=== PATIENT | female | born 1980 | race Two or more races ===

== ENCOUNTER 2020-03-30 11:59 | Outpatient (CLI) | payer BC ==
[2020-03-30 13:19] LABS: HGB - HEMOGLOBIN 9.3 g/dL (12.0-16.0); MEAN CORPUSCULAR HEMOGLOBIN 28.8 pg (27.0-31.0); MEAN CORPUSCULAR HGB CONC 32.5 g/dL (32.0-36.0); MEAN CORPUSCULAR VOLUME 88.5 fL (81.0-99.0); MEAN PLATELET VOLUME 8.9 fL (7.9-10.8); RED BLOOD COUNT 3.23 10^6/uL (4.20-5.40); WHITE BLOOD COUNT 9.3 x10^3/uL (4.8-10.8)
== END 2020-03-30 12:00 | disposition home or self-care (01) ==
LOC: LAB 11:59
PROVIDERS: ATTEND Obstetrics & Gynecology
DX: Z36.89 Encounter for other specified antenatal screening (principal)
CPT/HCPCS: 36415; 82950; 85027; 86850

== ENCOUNTER 2020-04-02 09:23 | Outpatient (CLI) | payer BC ==
[2020-04-02] MEDS ORDERED: FERRIC GLUCONATE 125 MG in SODIUM CHLORIDE 0.9% 100ML 100 ML IV ONE (10:30)
[2020-04-02 12:25] VITALS: BP 121/68
--- NOTE | 2020-04-02 17:44 | PROVIDER PROGRESS NOTE ---
Subjective - Subjective Subjective: Pt here for scheduled IV iron transfusion. Uncomplicated; not seen by MD. Dx = chronic iron deficiency anemia Objective - Vital Signs/Intake & Output Vital Signs: Vital Signs x48h Temp Pulse Pulse Resp BP 04/02/20 12:00 97.5 F L 98 105 H 16 121/68
== END 2020-04-02 11:45 | disposition home or self-care (01) ==
LOC: WFO 09:23 → FBP 09:29 → WFO 11:45
PROVIDERS: ATTEND Obstetrics & Gynecology
DX: O99.019 Anemia complicating pregnancy, unspecified trimester (principal); D50.9 Iron deficiency anemia, unspecified
CPT/HCPCS: 96365; J2916

== ENCOUNTER 2020-04-09 09:01 | Outpatient (CLI) | payer BC ==
[2020-04-09] MEDS ORDERED: FERRIC GLUCONATE 125 MG in SODIUM CHLORIDE 0.9% 100ML 100 ML IV ONE (10:00)
[2020-04-09 10:31] VITALS: BP 121/64
--- NOTE | 2020-04-09 17:02 | PROVIDER PROGRESS NOTE ---
Subjective - Subjective Subjective: Pt here for IV iron transfusion Dx = chronic iron deficiency anemia Not seen by MD. Objective - Vital Signs/Intake & Output Vital Signs: Vital Signs x48h Temp Pulse Pulse Resp BP Pulse Ox 04/09/20 10:27 98.4 F 107 H 107 H 16 121/64 100
== END 2020-04-09 11:25 | disposition home or self-care (01) ==
LOC: WFO 09:01 → FBP 09:06 → WFO 11:25
PROVIDERS: ATTEND Obstetrics & Gynecology
DX: O99.013 Anemia complicating pregnancy, third trimester (principal); Z3A.00 Weeks of gestation of pregnancy not specified; D50.9 Iron deficiency anemia, unspecified
CPT/HCPCS: 96360; 96366; J2916

== ENCOUNTER 2020-04-13 08:00 | Outpatient (CLI) | payer BC ==
[2020-04-13 09:51] LABS: HGB - HEMOGLOBIN 9.1 g/dL (12.0-16.0); MEAN CORPUSCULAR HEMOGLOBIN 28.6 pg (27.0-31.0); MEAN CORPUSCULAR HGB CONC 31.9 g/dL (32.0-36.0); MEAN CORPUSCULAR VOLUME 89.6 fL (81.0-99.0); MEAN PLATELET VOLUME 9.1 fL (7.9-10.8); RED BLOOD COUNT 3.18 10^6/uL (4.20-5.40); RED CELL DISTRIBUTION WIDTH 14.8 % (12.0-15.0); WHITE BLOOD COUNT 9.6 x10^3/uL (4.8-10.8)
== END 2020-04-13 23:59 | disposition home or self-care (01) ==
LOC: LAB 08:00
PROVIDERS: ATTEND Obstetrics & Gynecology
DX: O99.013 Anemia complicating pregnancy, third trimester (principal)
CPT/HCPCS: 36415; 85027

== ENCOUNTER 2020-04-13 08:00 | Outpatient (CLI) | payer BC | END 2020-04-13 23:59 | disposition home or self-care (01) | LOC: LAB.WCP 08:00 | PROVIDERS: ATTEND Obstetrics & Gynecology | DX: O99.013 Anemia complicating pregnancy, third trimester (principal) | CPT/HCPCS: 81599; 83021; 85014; 85018; 85041 ==

== ENCOUNTER 2020-04-23 08:46 | Outpatient (CLI) | payer BC ==
[2020-04-23] MEDS ORDERED: SODIUM CHLORIDE FLUSH 0.9% 10 ML SYRINGE IVP PRN (08:54)
[2020-04-23 09:20] VITALS: BP 135/80
[2020-04-23] MEDS ORDERED: FERRIC GLUCONATE 125 MG in SODIUM CHLORIDE 0.9% 100ML 100 ML IV ONE (10:00)
== END 2020-04-23 10:45 | disposition home or self-care (01) ==
LOC: WFO 08:46 → FBP 08:51 → WFO 10:45
PROVIDERS: ATTEND Obstetrics & Gynecology
DX: O99.013 Anemia complicating pregnancy, third trimester (principal); Z3A.00 Weeks of gestation of pregnancy not specified
CPT/HCPCS: 96365; J2916

== ENCOUNTER 2020-04-27 09:19 | Outpatient (CLI) | payer BC | END 2020-04-27 09:20 | disposition home or self-care (01) | LOC: LAB 09:19 | PROVIDERS: ATTEND Obstetrics & Gynecology | DX: O99.013 Anemia complicating pregnancy, third trimester (principal) | CPT/HCPCS: 36415; 81599; 83021; 84432; 85014; 85018; 85041; 86800 ==

== ENCOUNTER 2020-05-10 07:00 | Outpatient (CLI) | payer BC | END 2020-05-10 23:59 | disposition home or self-care (01) | LOC: LAB.R 07:00 | PROVIDERS: ATTEND Obstetrics & Gynecology | DX: Z36.85 Encounter for antenatal screening for Streptococcus B (principal) | CPT/HCPCS: 87797 ==

== ENCOUNTER 2020-05-18 09:46 | Outpatient (CLI) | payer BC ==
[2020-05-18 10:03] LABS: HCT - HEMATOCRIT 33.1 % (37.0-47.0); HGB - HEMOGLOBIN 10.7 g/dL (12.0-16.0); MEAN CORPUSCULAR HEMOGLOBIN 29.1 pg (27.0-31.0); MEAN CORPUSCULAR HGB CONC 32.3 g/dL (32.0-36.0); MEAN CORPUSCULAR VOLUME 89.9 fL (81.0-99.0); MEAN PLATELET VOLUME 9.1 fL (7.9-10.8); RED BLOOD COUNT 3.68 10^6/uL (4.20-5.40); RED CELL DISTRIBUTION WIDTH 16.4 % (12.0-15.0)
== END 2020-05-18 09:47 | disposition home or self-care (01) ==
LOC: LAB 09:46
PROVIDERS: ATTEND Obstetrics & Gynecology
DX: O99.013 Anemia complicating pregnancy, third trimester (principal); Z36.85 Encounter for antenatal screening for Streptococcus B
CPT/HCPCS: 36415; 85027

== ENCOUNTER 2020-05-31 10:02 | Outpatient (CLI) | payer BC ==
[2020-05-31 10:18] LABS: HCT - HEMATOCRIT 31.9 % (37.0-47.0); HGB - HEMOGLOBIN 10.8 g/dL (12.0-16.0); MEAN CORPUSCULAR HEMOGLOBIN 29.8 pg (27.0-31.0); MEAN CORPUSCULAR HGB CONC 33.9 g/dL (32.0-36.0); MEAN CORPUSCULAR VOLUME 88.1 fL (81.0-99.0); MEAN PLATELET VOLUME 9.1 fL (7.9-10.8); RED BLOOD COUNT 3.62 10^6/uL (4.20-5.40); RED CELL DISTRIBUTION WIDTH 15.9 % (12.0-15.0); WHITE BLOOD COUNT 8.8 x10^3/uL (4.8-10.8)
[2020-05-31 11:05] LABS: ALBUMIN 3.3 g/dL (3.2-5.5); ALBUMIN/GLOBULIN RATIO 0.9 (1.0-2.2); BILIRUBIN,TOTAL 0.4 mg/dL (0.2-1.0); CREATININE 0.5 mg/dL (0.4-1.0); POTASSIUM 3.8 mmol/L (3.5-5.0); TOTAL PROTEIN 6.9 g/dL (6.7-8.2)
== END 2020-05-31 10:03 | disposition home or self-care (01) ==
LOC: LAB 10:02
PROVIDERS: ATTEND Obstetrics & Gynecology
DX: O99.013 Anemia complicating pregnancy, third trimester (principal); O34.211 Maternal care for low transverse scar from previous cesarean delivery; Z3A.39 39 weeks gestation of pregnancy; Z36.85 Encounter for antenatal screening for Streptococcus B; Z20.822 Contact with and (suspected) exposure to COVID-19
CPT/HCPCS: 36415; 80053; 85025; 85027; 86850; 86900; 86901; 86920

== ENCOUNTER 2020-06-02 05:21 | Inpatient (IN) | payer BC ==
[~2020-06-02 05:21] MED LIST: LACTATED RINGERS 1,000 ML IV SCH; ceFAZolin 2 GM/50 ML 2 GM/50 ML BAG IV ONE
[2020-06-02] MEDS ORDERED: MORPHINE PF 5 MG/10 ML VIAL ONE (06:58)
[2020-06-02] MEDS ORDERED: fentaNYL 100 MCG/2 ML VIAL ONE (06:58)
[2020-06-02] MEDS ORDERED: OXYTOCIN 10 UNIT/ML VIAL ONE (06:59)
[2020-06-02] MEDS ORDERED: ONDANSETRON 4 MG/2 ML VIAL ONE (06:59)
[2020-06-02] MEDS ORDERED: miSOPROStoL 200 MCG TABLET ONE (07:03)
[2020-06-02] MEDS ORDERED: CARBOPROST TROMETHAMINE 250 MCG/ML AMP IM ONE ×2 (07:04→09:31)
[2020-06-02] MEDS ORDERED: METHYLERGONOVINE 0.2 MG/ML VIAL ONE (07:04)
--- NOTE | 2020-06-02 07:33 | ANESTHESIA ---
Pre-Anesthesia VS, & Labs - Diagnosis previous section - Procedure repeat section Vital Signs: Temp Pulse Resp BP Pulse Ox 36.8 C 120 H 18 119/68 06/02/20 05:37 06/02/20 05:37 06/02/20 05:37 06/02/20 05:37 Height: 5 ft 1 in Weight (kg): 84.368 kg Body Mass Index: 35.1 BMI Classification: Obese - NPO >8 hours - Is Patient ?: Yes - Lab Results Lab results reviewed: Yes Home Medications and Allergies Active Medications Lactated Ringer's (Lr) 1,000 mls @ 0 mls/hr IV .Q0M COLLIN Allergies/Adverse Reactions: Allergies Allergy/AdvReac Type Severity Reaction Status Date / Time ibuprofen Allergy Hives Verified 04/02/20 10:29 Anes History & Medical History - Anesthetic History Anesthesia Complications: reports: No previous complications Family history of Anesthesia Complications: Denies Family history of Malignant Hyperthermia: Denies - Medical History Cardiovascular: reports: None Pulmonary: reports: None Gastrointestinal: reports: None Urinary: reports: None Neuro: reports: None Musculoskeletal: reports: None Endocrine/Autoimmune: reports: None Blood Disorders: reports: None Skin: reports: None Smoking Status: Former smoker History of Cancer?: No - Surgical History Gynecologic: reports: section Exam General: Alert, Oriented x3, Cooperative, No acute distress Dental: WNL Mouth Openin Fingerbreadth Neck Mobility: Normal Mallampati classification: II Respiratory: Lungs clear, Normal breath sounds, No respiratory distress, No accessory muscle use Cardiovascular: Regular rate, Normal S1, Normal S2, No murmurs Plan Anesthesia Type: Spinal Consent for Procedure(s) Verified and Reviewed: Yes Code Status: Attempt Resuscitation ASA classification: 2-Mild systemic disease Is this case an emergency?: No
[2020-06-02] MEDS ORDERED: fentaNYL 100 MCG/2 ML VIAL IT ONE (08:00)
[2020-06-02] MEDS ORDERED: MORPHINE PF 5 MG/10 ML VIAL IT ONE (08:00)
[2020-06-02] MEDS ORDERED: BUPIVACAINE 0.5% PF 30 ML VIAL ONE (08:06)
[2020-06-02] MEDS ORDERED: LIDOCAINE 2%-EPI 1:100000 20 ML MDV ONE (08:06)
[2020-06-02] MEDS ORDERED: ceFAZolin 1 GM VIAL ONE (08:09)
[2020-06-02] MEDS ORDERED: LIDOCAINE MPF 2%-EPI 1:200000 20 ML VIAL SUBQ ONE ×2 (08:24)
[2020-06-02] MEDS ORDERED: BUPIVACAINE 0.5% PF 30 ML VIAL SUBQ ONE ×2 (08:24)
[2020-06-02] MEDS ORDERED: ROPIVACAINE 0.5% PF 20 ML AMPULE ONE (09:13)
[2020-06-02] MEDS ORDERED: SODIUM CHLORIDE 0.9% 500 ML IV ONE (09:28)
[2020-06-02] MEDS ORDERED: OXYTOCIN/SODIUM CHLORIDE 500 ML IV PRN (09:31)
[2020-06-02] MEDS ORDERED: ONDANSETRON 4 MG/2 ML VIAL IVP PRN ×2 (09:31→09:42)
[2020-06-02] MEDS ORDERED: diphenhydrAMINE 25 MG CAPSULE PO PRN (09:31)
[2020-06-02] MEDS ORDERED: METHYLERGONOVINE 0.2 MG/ML VIAL IM PRN (09:31)
--- NOTE | 2020-06-02 09:40 | OPERATIVE REPORT ---
Operative Report - General Admit Date: 06/02/20 Procedure Date: 06/02/20 Planned Procedure: RLTC/S Pre-Op Diagnosis: 1. 39 WEEK. 2. PRIOR C/S Procedure Performed: RLTC/S - Procedure Note Primary Surgeon: Rocco Dozier MD Secondary Surgeon: Chana Kasper MD Anesthesia Provider: Carson Cadet CRNA Anesthesia Technique: Spinal IV Fluids (mL): 1,100 Estimated Blood Loss (mL): 400 Urine Output (mL): 160
[2020-06-02] MEDS ORDERED: METOCLOPRAMIDE 10 MG/2 ML VIAL IVP PRN (09:42)
[2020-06-02] MEDS ORDERED: ePHEDrine 50 MG/ML VIAL IVP PRN (09:42)
[2020-06-02] MEDS ORDERED: diphenhydrAMINE INJ 50 MG/ML VIAL IVP PRN (09:42)
[2020-06-02] MEDS ORDERED: NALOXONE 0.4 MG/ML VIAL IVP PRN (09:42)
[2020-06-02] MEDS ORDERED: NALBUPHINE 10 MG/ML AMP IVP PRN (09:42)
[2020-06-02] MEDS ORDERED: LACTATED RINGERS 1,000 ML IV SCH (10:00)
--- NOTE | 2020-06-02 12:35 | ANESTHESIA POST OP EVALUATION ---
Anesthesia Post Eval - Post Anesthesia Eval Vitals: Last Vital Signs Temp 36.8 C 06/02/20 11:00 Pulse 88 06/02/20 12:05 Resp 16 06/02/20 12:05 BP 94/56 L 06/02/20 12:05 Pulse Ox 97 06/02/20 12:05 CV Function Including HR & BP: Stable Pain Control: Satisfactory Nausea & Vomiting: Negative Mental Status: Baseline Respiratory Status: Airway Patent Hydration Status: Satisfactory Anesthesia Complications: None
--- NOTE | 2020-06-02 13:18 | OPERATIVE REPORT ---
DATE OF SERVICE: 06/02/2020 Physician: Rocco Dozier MD PREOPERATIVE DIAGNOSES 1. Term 39 weeks' gestation. 2. Previous section. POSTOPERATIVE DIAGNOSES 1. Term 39 weeks' gestation. 2. Previous section. PROCEDURE: Repeat low transverse section. SURGEON: Rocco Dozier MD MASTER PLUMBER: Chana Kasper MD ANESTHESIA: TOÑITO Mejias ANESTHETIC: Epidural. ESTIMATED BLOOD LOSS: 400 mL INTRAVENOUS FLUIDS: 1100 mL URINE OUTPUT: 160 mL FINDINGS: Live female , left occiput anterior, clear amniotic fluid, Apgars 9 and 9. DESCRIPTION OF PROCEDURE: Following adequate spinal anesthesia, patient was placed in the supine position with a roll under the right hip. At this point, a Dave catheter was placed and then she was prepped and draped in the usual fashion. A timeout was performed, at which concerns were addressed. Following ensuring good anesthesia, a Pfannenstiel incision was carried down through subcutaneous tissue to the fascia. The fascia was incised transversely, then using both blunt and sharp dissection, it was freed from the rectus abdominis. The rectus had previously been reapproximated, so it was split along the midline high. Care was taken to avoid any injury to bowel or bladder. The peritoneum was entered visually and then the incision was carried superiorly and inferiorly. The bladder was rising high. This was carefully pushed below. There was an extension of the peritoneal incision accomplished on the left-hand side. At this point, a bladder flap was developed using Metzenbaum scissors. A low transverse uterine incision was accomplished using a #10 blade, bandage scissors, and finger-spread technique. The membranes were then ruptured, and copious amount of clear amniotic fluid was encountered. Head of the was noted to be left occiput anterior and was lifted out of the pelvis and, utilizing fundal pressure, was delivered through the incision. There was minimal blood loss from the uterine incision, so the cord was not clamped for roughly 1 minute. This was then clamped, divided, and the infant was handed to the chemical treatment plant technician that was standing by. The placenta was manually removed. The uterus was exteriorized, wrapped in a moist lap and cleansed in the internal portion with a dry lap. There was minimal bleeding noted at this time. The incision was closed using running locking suture of 0 Vicryl with an imbricating layer of 0 Vicryl. The uterus was tipped forward, cul-de-sac was irrigated, and minimal to no fluid was encountered. At this point, the uterus was delivered back in the abdominal cavity. The peritoneum was grasped with hemostats and then closed utilizing 2-0 Vicryl. The rectus was reapproximated with 2-0 Vicryl, 2 [id number], and then the muscle was inspected. Hemostasis was accomplished using electrocautery. The fascia was then closed utilizing looped PDS in a running suture. The subcutaneous tissue was irrigated. No bleeding noted, and it was closed in a subcutaneous layer with 2-0 Vicryl. The incision itself was closed using 4-0 Monocryl subcuticular stitch and then Steri-Strips were placed following application of Mastisol. The patient tolerated the procedure well and was taken to recovery in stable condition. Sponge and needle counts were correct. TD: 06/02/2020 13:14 gracia LEIJA
[2020-06-02] MEDS: CELECOXIB 100 MG CAPSULE PO SCH ×2 (13:32→21:57)
[2020-06-02] MEDS: ACETAMINOPHEN 500 MG TABLET PO SCH ×2 (13:57→21:56)
[2020-06-02] MEDS: SIMETHICONE CHEW 80 MG TABLET PO SCH ×2 (13:57→21:56)
[2020-06-02] MEDS: DOCUSATE SODIUM 100 MG CAPSULE PO SCH (20:45)
[2020-06-02] MEDS: SODIUM CHLORIDE FLUSH 0.9% 10 ML SYRINGE IVP PRN (22:02)
[2020-06-03] MEDS: oxyCODONE 5 MG TABLET PO PRN ×5 (03:41→20:34)
[2020-06-03] MEDS: SODIUM CHLORIDE FLUSH 0.9% 10 ML SYRINGE IVP PRN (06:03)
[2020-06-03] MEDS: ACETAMINOPHEN 500 MG TABLET PO SCH ×3 (06:03→22:22)
[2020-06-03] MEDS ORDERED: HYDROmorphone 2 MG/ML VIAL IVP PRN (06:12)
[2020-06-03 06:16] LABS: BASOPHILS # (AUTO) 0.1 10^3/uL (0.0-0.1); BASOPHILS % (AUTO) 0.5 %; EOSINOPHILS # (AUTO) 0.2 10^3/uL (0.0-0.7); EOSINOPHILS % (AUTO) 1.6 %; HCT - HEMATOCRIT 33.6 % (37.0-47.0); HGB - HEMOGLOBIN 10.8 g/dL (12.0-16.0); LYMPHOCYTES % (AUTO) 15.4 %; MEAN CORPUSCULAR HEMOGLOBIN 28.7 pg (27.0-31.0); MEAN CORPUSCULAR HGB CONC 32.1 g/dL (32.0-36.0); MEAN CORPUSCULAR VOLUME 89.4 fL (81.0-99.0); MEAN PLATELET VOLUME 9.3 fL (7.9-10.8); MONOCYTES # (AUTO) 0.9 10^3/uL (0.0-1.0); NEUTROPHILS # (AUTO) 9.7 10^3/uL (1.5-6.6); NEUTROPHILS % (AUTO) 74.9 %; PLT - PLATELET COUNT 229 10^3/uL (130-450); RED BLOOD COUNT 3.76 10^6/uL (4.20-5.40); RED CELL DISTRIBUTION WIDTH 16.4 % (12.0-15.0)
[2020-06-03] MEDS: SODIUM CHLORIDE FLUSH 0.9% 10 ML SYRINGE IVP SCH ×2 (07:10→07:11)
[2020-06-03] MEDS: SIMETHICONE CHEW 80 MG TABLET PO SCH ×3 (07:48→18:06)
[2020-06-03] MEDS: DOCUSATE SODIUM 100 MG CAPSULE PO SCH ×2 (07:48→21:14)
[2020-06-03] MEDS: CELECOXIB 100 MG CAPSULE PO SCH ×2 (07:50→21:13)
--- NOTE | 2020-06-03 08:28 | PROVIDER PROGRESS NOTE ---
Subjective - General Admit Date: 06/02/20 Procedure Date: 06/02/20 Post Op Days: 1 - Review of Systems Wound/Incisions: positive: Healing well General: positive: No symptoms (Pain 5/10, not passing flatus. milk not in yet. voiding) Pulmonary: positive: No symptoms. negative: Shortness of breath Cardiovascular: positive: No symptoms. negative: Chest pain Gastrointestinal: negative: Nausea, Vomiting, Flatus Genitourinary: positive: No symptoms Objective - Patient Data Reviewed Vital Signs: Yes Vital Signs: Vital Signs x48h Temp Pulse Resp BP Pulse Ox 06/03/20 07:47 36.7 C 87 15 105/59 L 06/03/20 03:55 97 06/03/20 03:50 79 16 98/54 L Weight: Weight 06/01/20 06/02/20 06/03/20 23:59 23:59 23:59 Weight (kg) 84.368 kg Intake & Output: Intake and Output Totals x24h 06/01/20 06/02/20 06/03/20 23:59 23:59 23:59 Intake Total 4250 450 Output Total 2125 950 Balance 2125 -500 - Lab Results Lab Results: 06/03/20 06:14 Other Lab Results: Lab Results x24hrs 06/03/20 06/03/20 Range/Units 06:14 06:14 WBC 13.0 H (4.8-10.8) x10^3/uL RBC 3.76 L (4.20-5.40) 10^6/uL Hgb 10.8 L (12.0-16.0) g/dL Hct 33.6 L (37.0-47.0) % MCV 89.4 (81.0-99.0) fL MCH 28.7 (27.0-31.0) pg MCHC 32.1 (32.0-36.0) g/dL RDW 16.4 H (12.0-15.0) % Plt Count 229 (130-450) 10^3/uL MPV 9.3 (7.9-10.8) fL Neut # (Auto) 9.7 H (1.5-6.6) 10^3/uL Lymph # (Auto) 2.0 (1.5-3.5) 10^3/uL Gem # (Auto) 0.9 (0.0-1.0) 10^3/uL Eos # (Auto) 0.2 (0.0-0.7) 10^3/uL Baso # (Auto) 0.1 (0.0-0.1) 10^3/uL Absolute Nucleated RBC 0.00 x10^3/uL Nucleated RBC % 0.0 /100WBC Blood Type A NEGATIVE - Current Medications Current Medications: Current Medications Generic Name Dose Route Start Last Admin Trade Name Freq PRN Reason Stop Dose Admin Acetaminophen 1,000 mg 06/02/20 10:00 06/03/20 06:03 Acetaminophen 500 Mg Tablet PO 1,000 mg Q8H COLLIN Administration Celecoxib 200 mg 06/02/20 10:00 06/03/20 07:50 Celecoxib 100 Mg Capsule PO 200 mg BID COLLIN Administration Docusate Sodium 100 mg 06/02/20 21:00 06/03/20 07:48 Docusate Sodium 100 Mg Capsule PO 100 mg BID COLLIN Administration Oxytocin/Sodium Chloride 500 mls @ 999 mls/hr 06/02/20 09:31 06/02/20 19:00 Pitocin/Sodium Chloride IV Infused PRN PRN Titration POST- HEMORR PREVENTION Protocol 999 MILLIUNIT/MIN Oxycodone HCl 5 mg 06/02/20 10:50 06/03/20 07:49 Oxycodone 5 Mg Tablet PO 5 mg Q4HR PRN Administration PAIN Simethicone 80 mg 06/02/20 14:00 06/03/20 07:48 Simethicone Chew 80 Mg Tablet PO 80 mg TID COLLIN Administration Sodium Chloride 10 ml 06/02/20 09:31 06/03/20 06:03 Sodium Chloride Flush 0.9% 10 Ml Syringe IVP 10 ml PRN PRN Administration NEEDED PER PROVIDER ORDERS Sodium Chloride 10 ml 06/02/20 17:00 06/03/20 07:11 Sodium Chloride Flush 0.9% 10 Ml Syringe IVP Not Given 0100,0900,1700 [facility] - Physical Exam Wound/Incisions: positive: Healing well General Appearance: positive: No acute distress, Alert Respiratory: positive: Chest non-tender, No respiratory distress, Breath sounds nml Cardiovascular: positive: Regular rate & rhythm, No murmur, No gallop Abdomen: positive: Non-tender, No organomegaly, Nml bowel sounds, Mass (U-1) Back: negative: CVA tenderness (R), CVA tenderness (L) Extremities: negative: Calf tenderness, Gabe's sign/cords Impression/Plan - Problem List Problem List: POD #1 Progressing told to be slow with diet until passing faltus. Anemia stable.
[2020-06-03] MEDS: HYDROmorphone 1 MG/ML CARPUJECT IVP PRN (22:41)
[2020-06-04] MEDS: oxyCODONE 5 MG TABLET PO PRN ×2 (00:04→05:23)
[2020-06-04] MEDS: HYDROmorphone 1 MG/ML CARPUJECT IVP PRN (03:07)
[2020-06-04] MEDS: SODIUM CHLORIDE FLUSH 0.9% 10 ML SYRINGE IVP PRN (03:08)
[2020-06-04] MEDS: ACETAMINOPHEN 500 MG TABLET PO SCH ×2 (05:51→15:21)
[2020-06-04] MEDS ORDERED: HYDROmorphone 2 MG TABLET PO PRN (08:41)
--- NOTE | 2020-06-04 08:46 | PROVIDER PROGRESS NOTE ---
Subjective - Subjective Subjective: Feeling better with the higher dose of breakthrough dilaudid. Eat, ambulate well. Breastfeed OK with sore nipple. Unable to void fully yesterday so catheter was placed. + flatus. Mood good. AVSS Pt would like to try to go home today. Rhogam ordered. Change narcs po to dil audid hopefully that will help more and we can stop breakthrough IV meds. PVR this am normal with catheter. Will check next PVR with US and check incision then. Objective - Vital Signs/Intake & Output Vital Signs: Vital Signs x48h Temp Pulse Resp BP Pulse Ox 06/04/20 03:40 97.7 F 88 16 102/56 L 98 Intake & Output: Intake & Output 06/01/20 06/02/20 06/03/20 06/04/20 23:59 23:59 23:59 23:59 Intake Total 4250 1450 1100 Output Total 2125 8363 648 Balance 7494 -9793 455 - Lab Results Fish Bones: 06/03/20 06:14
[2020-06-04] MEDS ORDERED: RHO(D) IMMUNE GLOBULIN 300 MCG SYRINGE IM ONE (09:00)
[2020-06-04] MEDS: DOCUSATE SODIUM 100 MG CAPSULE PO SCH (09:11)
[2020-06-04] MEDS: CELECOXIB 100 MG CAPSULE PO SCH (09:11)
[2020-06-04] MEDS: SIMETHICONE CHEW 80 MG TABLET PO SCH (09:11)
[2020-06-04] MEDS ORDERED: bisacodyL 5 MG TABLET PO SCH (10:49)
--- NOTE | 2020-06-04 10:52 | Discharge Plan ---
Discharge Plan Problem Reviewed?: Yes Disposition: Home, Self Care Condition: Good Prescriptions: Acetaminophen [Acetaminophen Extra Strength] 1,000 mg PO Q6H PRN #45 tablet PRN Reason: Pain Celecoxib [CeleBREX] 100 mg PO BID PRN #30 PRN Reason: Pain Docusate Sodium 100Mg Capsule [Colace 100Mg Capsule] 100 mg PO BID PRN #30 cap PRN Reason: to soften stool Diet: Regular Activity Restrictions: See RN instructions Shower Restrictions: No Driving Restrictions: Yes (not while on hydromorphone) No Smoking: If you smoke, Please STOP! Call for help. Follow-up with: Rocco Dozier MD [Primary Care Provider] - 1 Week
[2020-06-04 14:07] VITALS: BP 121/62
--- NOTE | 2020-06-04 16:42 | DISCHARGE SUMMARY ---
Physician: Chana Kasper MD DATE OF ADMISSION: 06/02/2020 DATE OF DISCHARGE: 06/04/2020 DIAGNOSES 1. Prior section. 2. Intrauterine at 39 weeks. 3. Desires repeat section. DISCHARGE DIAGNOSES 1. Prior section. 2. Intrauterine at 39 weeks. 3. Desires repeat section. PROCEDURES: Repeat low transverse section. This was uncomplicated. HOSPITAL COURSE: The patient was admitted for her repeat , which was performed without difficulty. Her postoperative course was remarkable for difficulties with pain control. The patient does have an allergy to ibuprofen, but we were able to use Celebrex for her. She had quite a bit of breakthrough pain and did better on Dilaudid than she did with oxycodone, so her narcotics were switched to that. She also had an episode of urinary retention, causing an acute pain flare. Her Dave was left in place overnight. When it was removed, she had two postvoid residuals that were less than 75 mL. By day #2, she was requesting discharge home. She was eating, ambulating, and without difficulties. Her mood was good. She was not having any heavy bleeding. PHYSICAL EXAM VITAL SIGNS: Afebrile with normal vital signs. GENERAL: Alert and pleasant, in no apparent distress. ABDOMEN: Soft, nontender, nondistended. Fundus firm, nontender, and 1 cm below the umbilicus. Incision clean, dry, and intact with Steri-Strips in place. EXTREMITIES: There is no lower extremity edema. DISPOSITION: Home. CONDITION: Good. FOLLOWUP: In [address] Dozeir. MEDICATIONS 1. Dilaudid p.r.n. pain. 2. Celebrex. 3. Tylenol. 4. Colace. TD: 06/04/2020 16:41 j LISS
== END 2020-06-04 15:25 | disposition home or self-care (01) | DRG 788 ==
LOC: FBP 05:21
PROVIDERS: ADMIT Obstetrics & Gynecology; ATTEND Obstetrics & Gynecology
PROC: 10D00Z1 Extraction of Products of Conception, Low, Open Approach (ICD-10-PCS; principal; 2020-06-02 07:30)
DX: O34.211 Maternal care for low transverse scar from previous cesarean delivery (principal); N85.8 Other specified noninflammatory disorders of uterus; Z3A.39 39 weeks gestation of pregnancy; Z37.0 Single live birth; O99.214 Obesity complicating childbirth; E66.9 Obesity, unspecified; O90.89 Other complications of the puerperium, not elsewhere classified; G89.18 Other acute postprocedural pain; R33.9 Retention of urine, unspecified
CPT/HCPCS: 36415; 83033; 85025; 86900; 86901; A9270; J0690; J1170; J2274; J7120

== ENCOUNTER 2020-06-09 12:38 | Outpatient (CLI) | payer BC ==
[2020-06-09 13:06] LABS: ALBUMIN 3.6 g/dL (3.2-5.5); BILIRUBIN,TOTAL 0.4 mg/dL (0.2-1.0); CALCIUM 9.4 mg/dL (8.5-10.3); CREATININE 0.6 mg/dL (0.4-1.0); HCT - HEMATOCRIT 35.8 % (37.0-47.0); HGB - HEMOGLOBIN 11.7 g/dL (12.0-16.0); MEAN CORPUSCULAR HEMOGLOBIN 28.8 pg (27.0-31.0); MEAN CORPUSCULAR HGB CONC 32.7 g/dL (32.0-36.0); MEAN CORPUSCULAR VOLUME 88.2 fL (81.0-99.0); MEAN PLATELET VOLUME 8.9 fL (7.9-10.8); POTASSIUM 4.5 mmol/L (3.5-5.0); RED BLOOD COUNT 4.06 10^6/uL (4.20-5.40); RED CELL DISTRIBUTION WIDTH 15.2 % (12.0-15.0); TOTAL PROTEIN 7.2 g/dL (6.7-8.2); WHITE BLOOD COUNT 8.2 x10^3/uL (4.8-10.8)
== END 2020-06-09 12:39 | disposition home or self-care (01) ==
LOC: LAB 12:38
PROVIDERS: ATTEND Obstetrics & Gynecology
DX: O90.9 Complication of the puerperium, unspecified (principal)
CPT/HCPCS: 36415; 80053; 85027

== ENCOUNTER 2020-07-14 13:48 | Outpatient (CLI) | payer BC ==
[2020-07-14 13:57] LABS: HCT - HEMATOCRIT 38.3 % (37.0-47.0); HGB - HEMOGLOBIN 12.6 g/dL (12.0-16.0); MEAN CORPUSCULAR HGB CONC 32.9 g/dL (32.0-36.0); MEAN PLATELET VOLUME 9.2 fL (7.9-10.8); RED BLOOD COUNT 4.35 10^6/uL (4.20-5.40); RED CELL DISTRIBUTION WIDTH 13.7 % (12.0-15.0); WHITE BLOOD COUNT 8.3 x10^3/uL (4.8-10.8)
== END 2020-07-14 13:49 | disposition home or self-care (01) ==
LOC: LAB 13:48
PROVIDERS: ATTEND Obstetrics & Gynecology
DX: D64.9 Anemia, unspecified (principal)
CPT/HCPCS: 36415; 85027